=== PATIENT | male | born 1975 | race Caucasian/White ===

== ENCOUNTER 2017-10-03 04:55 | Observation (INO) | payer OTHER ==
[2017-10-03] MEDS ORDERED: LR 1,000 ML IV ONE (06:13)
[2017-10-03] MEDS ORDERED: ceFAZolin 2 GM/SWFI 2 GM/20 ML SYR IVP ONE (06:41)
--- NOTE | 2017-10-03 06:41 | PDGENHP ---
History & Physical Chief Complaint: Left parotid mass History of Present Illness: Left parotid mass Pertinent Past, Social, Family History: Negative Relevant Physical Exam: Left parotid mass. RRR. CTA. Cardiorespiratory Assessment: RRR. CTA.
--- NOTE | 2017-10-03 06:48 | PDANEPAE ---
ANE History of Present Illness 42 year old male w/ PMHx of HTN, DM2, Obesity, JAK (does not utilize CPAP) and smoker presents for excision of left parotid gland mass. ANE Past Medical History - Cardiovascular History Hx Hypertension: Yes Hx Arrhythmias: No Hx Chest Pain: No Hx Coronary Artery / Peripheral Vascular Disease: No Hx CHF / Valvular Disease: No Hx Palpitations: No - Pulmonary History Hx COPD: No Hx Asthma/Reactive Airway Disease: No Hx Recent Upper Respiratory Infection: No Hx Oxygen in Use at Home: No Hx Sleep Apnea: Yes Sleep Apnea Screening Result - Last Documented: Positive Pulmonary History Comment: Hx of sleep apnea does not use CPAP - Neurologic History Hx Cerebrovascular Accident: No Hx Seizures: No Hx Dementia: No - Endocrine History Hx Diabetes: Yes Obesity: yes Endocrine History Comment: Type 2 diabetes - Renal History Hx Renal Disorders: No - Liver History Hx Hepatic Disorders: No - Neurological & Psychiatric Hx Hx Neurological and Psychiatric Disorders: No - Cancer History Hx Cancer: No - Congenital Disorder History Hx Congenital Disorders: No - GI History Hx Gastrointestinal Disorders: No - Other Health History Other Health History: left parotid mass - Chronic Pain History Chronic Pain: No - Surgical History Prior Surgeries: T&A ANE Review of Systems Review of systems is: negative Review of Systems: - Exercise capacity Exercise capacity: >=4 METS METS (RN): 4 METS ANE Patient History - Allergies Allergies/Adverse Reactions: No Known Allergies Allergy (Verified 10/03/17 06:19) - Home Medications Home medications: home medication list seen and reviewed Home Medications: Cetirizine [ZyrTEC 10 mg (*)] 10 mg PO DAILY 08/29/17 [Last Taken 10/02/17] Cholecalciferol Vit D3 [Vitamin D3 (*)] 1,000 units PO DAILY 08/29/17 [Last Taken 10/02/17] Cyanocobalamin [Vitamin B12 (*)] 1,000 mcg PO DAILY 08/29/17 [Last Taken ] Glipizide [Glipizide ER] 2.5 mg PO DAILY 08/29/17 [Last Taken 10/02/17] Valsartan/Hydrochlorothiazide [Valsartan-Hctz 320-12.5 mg Tab] 1 each PO DAILY 08/29/17 [Last Taken 10/02/17] amLODIPine BESYLATE [Norvasc 5 mg (*)] 5 mg PO DAILY 08/29/17 [Last Taken ] metFORMIN HCL [Glucophage 1000 mg] 1,000 mg PO BIDMEAL 08/29/17 [Last Taken 01/14] - NPO status NPO Status: no food or drink >8 hours NPO Since - Liquids (Date): 10/02/17 NPO Since - Liquids (Time): 22:00 NPO Since - Solids (Date): 10/02/17 NPO Since - Solids (Time): 18:00 - Anes Hx Anes Hx: no prior problems - Smoking Hx Smoking Status: Current every day smoker Marijuana use: No - Alcohol Use Alcohol Use: Occasionally - Family Anes Hx Family Anes Hx: neg - N/A Family Hx Anesthesia Complications: none ANE Labs/Vital Signs - Vital Signs Vital Signs: reviewed preoperatively; see RN documention for details Blood Pressure: 156/105 Heart Rate: 89 Respiratory Rate: 18 O2 Sat (%): 93 Height: 182.88 cm Weight: 147.418 kg ANE Physical Exam - Airway Neck exam: FROM, short neck Mallampati Score: Class 4 Mouth exam: poor dentition - Pulmonary Pulmonary: no respiratory distress - Cardiovascular Cardiovascular: regular rate and rhythym - ASA Status ASA Status: III ANE Anesthesia Plan Anesthesia Plan: general endotracheal anesthesia Total IV Anesthesia: No
[2017-10-03] MEDS ORDERED: ceFAZolin 3 GM in D5W 100 ML IV ONE (07:00)
[2017-10-03] MEDS ORDERED: MIDAZOLAM 2 MG/2 ML VIAL IVP ONE (07:03)
[2017-10-03] MEDS ORDERED: PROPOFOL/EMULSION 500 MG/50 ML BOTTLE IV ONE ×2 (07:08→08:40)
[2017-10-03] MEDS ORDERED: BACITRACIN ZINC 14.2 GM OINTTUBE TP ONE ×2 (07:09→10:25)
[2017-10-03] MEDS ORDERED: REMIFENTANIL HCL 1 MG VIAL ONE ×2 (07:09→08:40)
[2017-10-03] MEDS ORDERED: fentaNYL 100 MCG/2 ML INJ ONE ×2 (07:09→11:38)
[2017-10-03] MEDS ORDERED: PROPOFOL 200 MG/20 ML VIAL ONE (07:09)
[2017-10-03] MEDS ORDERED: LIDOCAINE 1% 300 MG/30 ML SDV ONE (07:11)
[2017-10-03] MEDS ORDERED: SUCCINYLCHOLINE CHLORIDE 200 MG/10 ML SYR IVP ONE (07:19)
[2017-10-03] MEDS ORDERED: PHENYLEPHRINE HCL 100 MCG/ML SYR ONE (07:19)
[2017-10-03] MEDS ORDERED: PHENYLEPHRINE 10 MG/ML SDV ONE (08:00)
[2017-10-03] MEDS ORDERED: ONDANSETRON 4 MG/2 ML VIAL IVP PRN (08:14)
[2017-10-03] MEDS ORDERED: HYDROCODONE/APAP 5/325 TAB PO PRN (08:14)
[2017-10-03] MEDS ORDERED: LR 500 ML IV PRN (08:14)
[2017-10-03] MEDS ORDERED: PHENYLEPHRINE HCL 100 MCG/ML SYR IVP PRN (08:14)
[2017-10-03] MEDS ORDERED: NALOXONE HCL 0.4 MG/ML INJ IVP PRN (08:14)
[2017-10-03] MEDS ORDERED: epHEDrine SULFATE 10 MG/ML SYR IVP PRN (08:14)
--- NOTE | 2017-10-03 10:45 | POSTOPPROG ---
Post Op Note Date of Operation: 10/03/17 Surgeon: Jovan Le Pre-op Diagnosis: Left parotid mass Post-op Diagnosis: Same Procedure: Left lateral parotidectomy Drains: Doug Trinh (15 georgian) Specimen(s): left tail of parotid
[2017-10-03] MEDS ORDERED: OXYCODONE/APAP 5/325 TAB PO PRN (10:57)
--- NOTE | 2017-10-03 10:57 | GOP ---
[f rep st] OPERATIVE REPORT DATE OF OPERATION: 10/03/2017 SURGEON: Jovan Le MD [employer] DESIGNER: Kiara ANESTHESIA: General endotracheal. PREOPERATIVE DIAGNOSIS: Left parotid mass. POSTOPERATIVE DIAGNOSIS: Left parotid mass. PROCEDURE PERFORMED: Left lateral parotidectomy. FINDINGS: 1. A 4 cm left tail of parotid mass. 2. Good identification of the facial nerve with stimulation at the end of the case as above. ESTIMATED BLOOD LOSS: 50 mL. DESCRIPTION OF PROCEDURE: The patient's left neck was marked in the preoperative holding area. He w as orally endotracheally intubated. An incision was marked in the relaxed skin tension crease in the left preauricular area and into the left neck utilizing a relaxed skin tension crease in the left ne ck. It was injected with 1% lidocaine with 100,000 epinephrine. He was sterilely prepped and draped . A 15 blade scalpel was used to come through the skin. We dissected through the platysma. We diss ected down to the parotid fascia. We then took away attachments from the sternocleidomastoid muscle and the parotid fascia away from the mastoid. We reflected the parotid forward. He had a 4 cm left tail of parotid mass that was deep in the neck and coming off the back end of the left tail of paroti d. We dissected down under the tragal pointer. We then dissected 1 cm deep and inferior to the trag al pointer and identified the facial nerve. This was carried out forward with good identification of the buccal branch and stimulation of the facial nerve. We then identified the marginal mandibular n erve branch and dissected this out. We had good exposure of the tumor at this point, and, keeping th e marginal mandibular nerve under direct visualization, we removed the tumor. This was sent to patho logy for permanent section analysis. Hemostasis was achieved with bipolar. The wound was copiously irrigated and suctioned. The nerve was stimulated and all branches were mobile. A 15-Sinhala drain w as placed deep to the parotid tissue remaining and over the sternocleidomastoid muscle. It was sewn in position with 3-0 nylon. The skin was reapproximated with 3-0 chromic in the deep stitch and 5-0 nylon along the skin. A pressure dressing was applied. He tolerated the procedure well and was in g ood condition at the end of procedure. Left tail of parotid mass. /[id number]/MODL
[2017-10-03] MEDS ORDERED: D5W 1/2 NS W/ 20 KCl/L 1,000 ML IV SCH (11:00)
[2017-10-03] MEDS ORDERED: LABETALOL HCL 5 MG/ML 20 ML MDV ONE (11:07)
[2017-10-03] MEDS: LABETALOL HCL 5 MG/ML 20 ML MDV IVP PRN ×3 (11:08→12:02)
[2017-10-03] MEDS ORDERED: HYDROCHLOROTHIAZIDE PO SCH (11:15)
[2017-10-03] MEDS ORDERED: amLODIPine BESYLATE 5 MG TAB PO SCH (11:15)
[2017-10-03] MEDS ORDERED: VALSARTAN PO SCH (11:15)
[2017-10-03] MEDS: fentaNYL 100 MCG/2 ML INJ IVP PRN ×2 (11:41→11:51)
[2017-10-03] MEDS ORDERED: OXYCODONE/APAP 5/325 TAB ONE (11:55)
[2017-10-03] MEDS ORDERED: VALSARTAN 160 MG TAB PO SCH (13:45)
[2017-10-03] MEDS ORDERED: HYDROCHLOROTHIAZIDE 25 MG TAB PO SCH (13:45)
--- NOTE | 2017-10-03 13:47 | POSTANESTH ---
Post Anesthetic Evaluation Cardiovascular Status: Normal, Stable, Similar to Pre-Op Cond Respiratory Status: Normal, Stable, Similar to Pre-op Cond. Level of Consciousness/Mental Status: Can Participate in Eval, Alert and Oriented Pain Control: Adequate, Prn Tx Ordered Nausea/Vomiting Control: Adequate, Prn Tx Ordered Complications Possibly Related to Anesthesia: None Noted
--- NOTE | 2017-10-03 15:27 | SOAPPROG ---
SOAP Progress Note Assessment/Plan: pt s/p left parotidectomy. Doing great. Mild discomfort. O- dressing in place, incision looks good. 10cc bloody drainage. facial nerve intact. Plan: Pt feels comfortable going home tonight. We will leave drain in palce until friday morning. 1 week for sutures. Can remove dressing tomorrow. 10/03/17 15:24 Objective: Vital Signs Temp Pulse Resp BP Pulse Ox 36.5 C 92 92 H 167/98 H 95 10/03/17 14:39 10/03/17 14:39 10/03/17 14:39 10/03/17 14:40 10/03/17 13:39 10/02/17 10/03/17 10/04/17 05:59 05:59 05:59 Intake Total 1550 Output Total 50 Balance 1500 ICD10 Worksheet Patient Problems: Problems Problem Status Onset Parotid neoplasm Acute - ICD10 Problem Qualifiers (1) Parotid neoplasm
[2017-10-03 15:49] VITALS: BP 177/98; PULSE 98; RESP 18; TEMP 98.2; O2SAT 92
--- NOTE | 2017-10-03 17:02 | ASDISCHSUM ---
Discharge Information Plan Status:Home with No Needs Medically Cleared to Leave: Discharge Date:10/03/2017 04:24 PM CM D/C Disposition:Home, Routine, Self-Care ADT D/C Disposition:Home, Routine, Self-Care Projected Discharge Date:10/03/2017 04:24 PM Transportation at D/C:Friend Discharge Delay Reason: Follow-Up Date:10/03/2017 04:24 PM Discharge Slot: Final Diagnosis: Placement Information Patient Contact Information Contact Name:KAI Relationship:Mother Address: Work Phone: City: [facility] Phone: State/Zip Code: Email: Financial Information Financial Class:[employer] Primary Plan Desc:[employer] H[employer] OPEN [employer] LOCAL Primary Plan Number:[id number] Secondary Plan Desc: Secondary Plan Number: Assessment Information Intervention Information
[2017-10-03] MEDS ORDERED: metFORMIN HCL 500 MG TAB PO SCH (18:00)
== END 2017-10-03 16:24 | disposition home or self-care (01) ==
LOC: F3E 04:55
PROVIDERS: ADMIT Otolaryngology; ATTEND Otolaryngology
PROC: 0CB90ZZ Excision of Left Parotid Gland, Open Approach (ICD-10-PCS; principal; 2017-10-03 07:15)
DX: D11.0 Benign neoplasm of parotid gland (principal); I10 Essential (primary) hypertension; E11.9 Type 2 diabetes mellitus without complications; G47.33 Obstructive sleep apnea (adult) (pediatric); F17.210 Nicotine dependence, cigarettes, uncomplicated; E66.9 Obesity, unspecified
CPT/HCPCS: 42415; G0378; J0171; J0330; J0690; J2250; J2370; J2704; J3010; J3490